=== PATIENT | male | born 1940 | race Caucasian/White ===

== ENCOUNTER 2016-08-30 13:14 | Emergency (ER) | payer MEDICARE, BC ==
[2016-08-30 14:42] LABS: BASOPHILS 0.1 % (0-2); EOSINOPHILS 0.1 % (0-7); HEMATOCRIT 48.6 % (42.0-54.0); HEMOGLOBIN 16.8 g/dL (13.5-17.5); IMMATURE GRANULOCYTES 0.4 % (0-5); LYMPHOCYTES 13.1 % (15-50); MCH 30.5 pg (26.0-34.0); MCHC 34.6 g/dL (31.0-37.0); MCV 88.2 fL (80.0-100.0); MEAN PLATELET VOLUME 9.6 fL (7.4-10.4); MONOCYTES 5.4 % (2-11); NEUTROPHILS 80.9 % (40-80); PLATELET COUNT 191 10x3/uL (130-400); RBC 5.51 10x6/uL (4.20-6.10); RDW 14.2 % (11.5-14.5); WBC 9.7 10x3/uL (4.8-10.8)
[2016-08-30 15:01] LABS: ALKALINE PHOSPHATASE 111 U/L (46-116); ALT (SGPT) 35 U/L (10-68); BILIRUBIN - TOTAL 0.48 mg/dL (0.2-1.3); CALC OSMOLALITY 275 mosm/kg (275-300); CALCIUM 9.1 mg/dL (8.5-10.1); CHLORIDE - SERUM 100 mmol/L (98-107); GLUCOSE 126 mg/dL (74-106); POTASSIUM - SERUM 4.6 mmol/L (3.5-5.1); PROTEIN - SERUM 7.8 g/dL (6.4-8.2); SODIUM 136 mmol/L (136-145); UREA NITROGEN 18 mg/dL (7-18); eGFR NON AFRICAN AMERICAN 77 mL/min (90-120)
[2016-08-30 15:35] LABS: CKMB 1.9 U/L (0.0-3.6); CREATINE KINASE 60 UL (21-232); TROPONIN-I 0.037 ng/mL (0.000-0.060)
[2016-08-30 18:01] LABS: ERYTHROCYTE SEDIMENTATION RATE 1 mm/hr (0-20)
== END 2016-08-30 20:20 | disposition home or self-care (01) ==
LOC: D.ER 13:14
PROVIDERS: Emergency Medicine; Nurse Practitioner Family
DX: R53.1 Weakness (principal); I10 Essential (primary) hypertension; E78.5 Hyperlipidemia, unspecified; Z86.73 Personal history of transient ischemic attack (TIA), and cerebral infarction without residual deficits

== ENCOUNTER 2018-01-02 23:37 | Emergency (ER) | payer MEDICARE, BC ==
[~2018-01-02] VITALS: Ht 165.1 cm; Wt 84.1 kg
[2018-01-02 23:45] VITALS: Ht 165.1 cm; Wt 84.1 kg
[2018-01-02] MEDS ORDERED: ZESTRIL20 MG PO (23:51)
[2018-01-02] MEDS ORDERED: GABAPENTIN100 MG PO (23:52)
[2018-01-02] MEDS ORDERED: TRILEPTAL300 MG PO (23:52)
[2018-01-02] MEDS ORDERED: ELAVIL10 MG PO (23:53)
[2018-01-02] MEDS ORDERED: ATIVAN0.5 MG PO (23:53)
[2018-01-02] MEDS ORDERED: TERAZOSIN HCL2 MG PO (23:54)
[2018-01-02] MEDS ORDERED: TOPROL XL50 MG PO (23:54)
[2018-01-02] MEDS ORDERED: NORVASC10 MG PO (23:55)
[2018-01-02] MEDS ORDERED: [UNRECOGNIZED DRUG - CODE] TOPICAL (23:56)
[2018-01-03 02:14] VITALS: BP 148/67
== END 2018-01-03 02:15 | disposition home or self-care (01) ==
LOC: D.ER 23:37
DX: M79.2 Neuralgia and neuritis, unspecified (principal); R51 Headache; Z86.73 Personal history of transient ischemic attack (TIA), and cerebral infarction without residual deficits; I10 Essential (primary) hypertension; Z85.828 Personal history of other malignant neoplasm of skin